=== PATIENT | female | born 1970 | race Caucasian/White ===

== ENCOUNTER 2017-07-03 22:39 | Emergency (ER) | payer MEDICAID ==
[~2017-07-03] VITALS: Ht 162.6 cm; Wt 68.0 kg
[2017-07-03 23:19] VITALS: BP 144/96
== END 2017-07-04 00:58 | disposition left against medical advice (07) ==
LOC: ER 22:39
DX: S01.511A Laceration without foreign body of lip, initial encounter (principal); Z53.21 Procedure and treatment not carried out due to patient leaving prior to being seen by health care provider; W18.02XA Striking against glass with subsequent fall, initial encounter; Y93.89 Activity, other specified; Y99.8 Other external cause status; Y92.89 Other specified places as the place of occurrence of the external cause
CPT/HCPCS: 70450; 71045; 81025; 93005; 99281; J7030